=== PATIENT | male | born 1950 | race Caucasian/White ===

== ENCOUNTER 2022-02-16 20:11 | Outpatient (CLI) | payer MEDICARE | END 2022-02-16 20:12 | disposition left against medical advice (07) | LOC: EMS 20:11 | DX: N48.89 Other specified disorders of penis (principal) ==

== ENCOUNTER 2022-02-16 20:57 | Emergency (ER) | payer MEDICARE ==
--- NOTE | 2022-02-16 21:28 | ED Physician Documentation ---
PD HPI MALE - Stated complaint Stated Complaint: CATH ISSUES/POST SURGERY - Chief complaint Chief Complaint: General - History obtained from History obtained from: Patient - History of Present Illness Timing - onset: Yesterday Pain level now: 0 Associated symptoms: No: Dysuria, Hematuria Recently seen: Surgery - Additional information Additional information: patient underwent radical prostatectomy 4 days ago. This evening, he noticed brusing to penis and scrotum with mild swelling. Denies pain, denies fever. He is not dyspneic and he denies chest pain. 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) - Present Medications Home Medications: Ambulatory Orders Medication Instructions Recorded Confirmed diltiaZEM CD [Cardizem Cd] 180 mg PO DAILY #14 cap 02/17/22 - Allergies Allergies/Adverse Reactions: Allergies Allergy/AdvReac Type Severity Reaction Status Date / Time No Known Drug Allergies Allergy Verified 02/16/22 21:06 PD ED PE NORMAL - Vitals Vital signs reviewed: Yes - General General: Alert and oriented X 3, No acute distress, Well developed/nourished - Cardiac Cardiac: No murmur - Respiratory Respiratory: No respiratory distress, Clear bilaterally - Abdomen Abdomen: Soft, Non tender - Male Male : Other (flat echymosis right hemiscrotum, penile shaft. dykes catheter in place) PD ED PE EXPANDED - Cardiac Cardiac: Tachy, Irregularly irregular Results - Vitals Vitals: Oxygen O2 Source Room air - EKG (time done) No standard instances Rate: Rate (enter#) (123) Rhythm: Atrial fibrillation Willis: LAD, Anterior hemiblock Ischemia: ST depression (borderline in V5 , V6) - Labs Labs: Laboratory Tests 02/16/22 02/16/22 02/16/22 22:07 22:07 22:07 WBC 4.2 L RBC 3.77 L Hgb 12.5 L Hct 35.6 L MCV 94.4 H MCH 33.2 H MCHC 35.1 RDW 12.9 Plt Count 196 MPV 10.1 Neut # (Auto) 2.9 Lymph # (Auto) 0.8 L Campbell # (Auto) 0.5 Eos # (Auto) 0.1 Baso # (Auto) 0.0 Absolute Nucleated RBC 0.00 Nucleated RBC % 0.0 PT INR APTT Sodium 139 Potassium 3.8 Chloride 104 Carbon Dioxide 26 Anion Gap 9.0 BUN 15 Creatinine 0.8 Estimated GFR (MDRD) 95 Glucose 111 H Calcium 8.6 Total Bilirubin 1.3 H AST 29 ALT 22 Alkaline Phosphatase 49 Total Protein 6.7 Albumin 3.6 Globulin 3.1 Albumin/Globulin Ratio 1.2 Lipase 34 TSH 1.27 02/16/22 22:08 WBC RBC Hgb Hct MCV MCH MCHC RDW Plt Count MPV Neut # (Auto) Lymph # (Auto) Campbell # (Auto) Eos # (Auto) Baso # (Auto) Absolute Nucleated RBC Nucleated RBC % PT 12.2 INR 1.1 APTT 32.0 Sodium Potassium Chloride Carbon Dioxide Anion Gap BUN Creatinine Estimated GFR (MDRD) Glucose Calcium Total Bilirubin AST ALT Alkaline Phosphatase Total Protein Albumin Globulin Albumin/Globulin Ratio Lipase TSH PD MEDICAL DECISION MAKING - ED course Complexity details: reviewed results, re-evaluated patient, considered differential, d/w patient ED course: patients chief complaint/concern is post-operative ecchymosis on scrotum and penis. I reassured him that this is not an unusual nor concerning occurrence after such a procedure. he also has questions about whether the dykes is draining properly based on what he perceives is decreased urine output, but he has no urge to urinate, no suprapubic fullness, and the dykes is draining during this H+P (clear yellow urine that appears mildly concentrated). I reassured hum that the catheter is draining properly. He is noted to be in rapid atrial fibrillation tonight, new onset. He is asymptomatic in regards to the TE. He is given iv cardizem which resulted in rate control but he remained in atrial fibrillation, No concerning findings on CBC, ER abdominal panel, and TSH is normal. I discussed the case with Dr. Aguilar (cardiology cotton expert at [facility]), recommends cardizem PO rx for ongoing rate control. Given recent radical prostatectomy, will hold off on full anticoagulation; he is currently taking SQ lovenox as prescribed by the urologist (40mg QD SQ). I advised patient to follow up with his PMD (or inquire if they recommend direct referral to cardiology). Return precautions discussed. He was given PO cardizem during ED stay as the IV cardizems effect waned, and rx for cardizem transmited to patients pharmacy of choice Departure - Departure Disposition: 01 Home, Self Care Clinical Impression: Postoperative ecchymosis Atrial fibrillation Qualifiers: Atrial fibrillation type: unspecified Qualified Code(s): I48.91 - Unspecified atrial fibrillation Condition: Good Instructions: ED Afib Follow-Up: ESTEFANIA SPENCER MD [Primary Care Provider] - Prescriptions: diltiaZEM CD [Cardizem Cd] 180 mg PO DAILY #14 cap Comments: As we discussed, the bruising to the scrotum and penis is not unusual after a procedure such as the one you had on Saturday. It is not dangerous and will reabsorb over 1-2 weeks. Follow up with your urologist; contact the office Saturday to update them and inquire as to when the urologist wants to reevaluate you. Tonight you were found to have atrial fibrillation. This typically requires a strong blood thinning medication, but because of your recent surgery, the bulwark carpenter I spoke to recommended holding off on strong blood thinners until you are followed up. Ideally you should be reevaluated Saturday either by cardiology or your primary care provider. The bulwark carpenter I spoke with is Dr. Aguilar: [facility] [address] [place] [address] [address] [place], [place] [phone] A prescription for cardizem has been electronically submitted to [facility] in [place]. This is usually used to control blood pressure, but in your case it is being prescribed to control your heart rate; your heart rate was too fast in the emergency department, which is typical for new-onset atrial fibrillation. Continue all other medications as prescribed Discharge Date/Time: 02/17/22 01:21
[2022-02-16] MEDS ORDERED: diltiaZEM INJ 5 MG/ML VIAL IVP STA (21:55)
[2022-02-16 22:15] LABS: BASOPHILS % (AUTO) 0.5 %; EOSINOPHILS # (AUTO) 0.1 10^3/uL (0.0-0.7); EOSINOPHILS % (AUTO) 1.9 %; HCT - HEMATOCRIT 35.6 % (42.0-52.0); HGB - HEMOGLOBIN 12.5 g/dL (14.0-18.0); LYMPHOCYTES # (AUTO) 0.8 10^3/uL (1.5-3.5); LYMPHOCYTES % (AUTO) 18.7 %; MEAN CORPUSCULAR HEMOGLOBIN 33.2 pg (27.0-31.0); MEAN CORPUSCULAR HGB CONC 35.1 g/dL (32.0-36.0); MEAN CORPUSCULAR VOLUME 94.4 fL (80.0-94.0); MEAN PLATELET VOLUME 10.1 fL (7.4-11.4); MONOCYTES # (AUTO) 0.5 10^3/uL (0.0-1.0); MONOCYTES % (AUTO) 11.3 %; NEUTROPHILS # (AUTO) 2.9 10^3/uL (1.5-6.6); NEUTROPHILS % (AUTO) 67.4 %; PLT - PLATELET COUNT 196 10^3/uL (130-450); RED BLOOD COUNT 3.77 10^6/uL (4.70-6.10); RED CELL DISTRIBUTION WIDTH 12.9 % (12.0-15.0); WHITE BLOOD COUNT 4.2 x10^3/uL (4.8-10.8)
[2022-02-16 22:31] LABS: ALBUMIN 3.6 g/dL (3.2-5.5); BILIRUBIN,TOTAL 1.3 mg/dL (0.2-1.0); CALCIUM 8.6 mg/dL (8.5-10.3); CREATININE 0.8 mg/dL (0.6-1.2); POTASSIUM 3.8 mmol/L (3.5-5.0)
[2022-02-16 22:43] LABS: ALBUMIN/GLOBULIN RATIO 1.2 (1.0-2.2); TOTAL PROTEIN 6.7 g/dL (6.7-8.2)
[2022-02-16 23:01] LABS: INR 1.1 (0.8-1.2); PT - PROTHROMBIN TIME 12.2 secs (9.9-12.6)
[2022-02-16] MEDS ORDERED: diltiaZEM CD 120 MG CAPSULE PO STA (23:42)
[2022-02-17] MEDS ORDERED: diltiaZEM INJ 5 MG/ML VIAL IVP STA (00:55)
[2022-02-17 01:15] VITALS: BP 112/62
== END 2022-02-17 01:21 | disposition home or self-care (01) ==
LOC: ED 20:57
DX: L76.32 Postprocedural hematoma of skin and subcutaneous tissue following other procedure (principal); I48.91 Unspecified atrial fibrillation
CPT/HCPCS: 36415; 80053; 83690; 84443; 85025; 85610; 85730; 93005; 96374; 96376; 99283; 99284; A9270